=== PATIENT | female | born 1995 | race Caucasian/White ===

== ENCOUNTER 2020-08-19 11:44 | Outpatient (RCR) | payer OTHER, SELFPAY ==
--- NOTE | 2020-08-28 11:43 | MHC.PT.DC ---
[facility] [place] Office [place] [facility] [place] [facility] [address] Rosa Fisher [address] [facility] [phone] F: [phone] F: [phone] F: [phone] F: [phone] Physical Therapy Discharge Report Diagnosis: low back pain Date of Surgery: N/A Date of Evaluation: 08/07/20 Date of Discharge: 08/28/20 Treatments to Date: 2 Cancellations to Date: 0 No Shows to Date: 4 Discharge Status: Visit Non-compliance Discharge Summary: The patient has missing four scheduled appointments without calling to cancel. Per [facility], which the patient was aware of and signed, she is being discharged for non-compliance. She has a home exercise program of low back stretching and core stabilization exercises. She is discharged from this physical therapy plan of care. Electronically signed by: Elis Shaw PT, DPT Please sign and return to therapist. Thank you for your referral.
== END 2020-08-28 11:44 | disposition other institution (70) ==
LOC: HO.PT 11:44
PROVIDERS: PCP Internal Medicine; Visit Provider Internal Medicine
DX: M54.5 Low back pain (principal)
CPT/HCPCS: 97110

== ENCOUNTER 2020-09-23 10:43 | Outpatient (REF) | payer OTHER, SELFPAY ==
[2020-09-23 12:18] LABS: MANUAL DIFF FLAG NO
[2020-09-23 12:40] LABS: Basophils Percent Auto 0.4 % (0-2); Eosinophils Absolute Auto 0.2 X10*3/uL (0.0-0.4); Eosinophils Percent Auto 3.2 % (0-4); Hematocrit 43.3 % (37-47); Hemoglobin 13.7 g/dl (12.0-16.0); Imm Gran Abs Auto 0.04 X10*3/uL (0.00-0.03); Imm Gran Pct Auto 0.5 % (0.0-0.4); Lymphocytes Absolute Auto 1.9 X10*3/uL (1.2-4.9); Mean Corpuscular HGB Conc 31.6 g/dl (31.0-35.0); Mean Corpuscular Hemoglobin 26.4 pg (27.0-33.0); Mean Corpuscular Volume 83.4 fL (80-98); Mean Platelet Volume 9.3 fL (9.4-12.3); Monocytes Absolute Auto 0.6 X10*3/uL (0.1-1.2); Monocytes Percent Auto 7.5 % (2-11); Neutrophils Absolute Auto 4.8 X10*3/uL (2.0-8.3); Neutrophils Percent Auto 63.4 % (45-73); Platelet Count 384 X10*3/uL (160-400); Red Blood Count 5.19 X10*6/uL (4.20-5.50); Red Cell Distribution Width 13.2 % (11.0-16.0); White Blood Count 7.5 X10*3/uL (4.8-10.8)
[2020-09-23 12:58] LABS: Alanine Aminotransferase 29 U/L (0-31); Albumin Level 4.1 g/dL (3.5-5.0); Alkaline Phosphatase 79 U/L (39-117); Anion Gap 11 (12-20); Aspartate Amino Transferase 19 U/L (5-31); Bilirubin Total 0.4 mg/dL (0.0-1.0); Blood Urea Nitrogen 15 mg/dL (9-16); Calcium 8.7 mg/dL (8.4-10.2); Carbon Dioxide 27 mmol/L (22-29); Chloride 104 mmol/L (96-108); Cholesterol 161 mg/dL; Estimated Glomerular Filt Rate > 60; Glucose Fasting 97 mg/dL (60-99); HDL Cholesterol 49 mg/dL; LDL Cholesterol Calculated 103 mg/dl; Potassium 4.9 mmol/l (3.3-5.1); Sodium 137 mmol/L (135-145); Total Protein 7.4 g/dL (6.5-8.0); Triglycerides 46 mg/dL
== END 2020-09-23 10:44 | disposition home or self-care (01) ==
LOC: HO.LAB 10:43
PROVIDERS: PCP Internal Medicine; Visit Provider Internal Medicine
DX: E66.9 Obesity, unspecified (principal); E11.9 Type 2 diabetes mellitus without complications
CPT/HCPCS: 36415; 80053; 80061; 85025

== ENCOUNTER 2021-06-02 13:24 | Outpatient (REF) | payer OTHER, SELFPAY ==
[2021-06-02 16:05] LABS: Syphilis Screen Nonreactive (Nonreactive)
[2021-06-03 02:40] LABS: CT PCR NOT DETECTED (Not Detect.); NG PCR NOT DETECTED (Not Detect.)
[2021-06-03 13:02] LABS: BV Int Neg Control Negative (Negative); BV Int Pos Control Positive (Positive)
[2021-06-04 08:24] LABS: HBsAGNum1 0.19 S/CO (0.00-0.99); HIV AB/AG Nonreactive (Nonreactive); HIV Num 1 0.15 S/CO (0.00-0.99); Hepatitis B Surface Antigen Negative (Negative); ~HepC Num1 0.13 S/CO (0.00-0.79); ~Hepatitis C Antibody Nonreactive (Nonreactive)
== END 2021-06-02 13:25 | disposition home or self-care (01) ==
LOC: HO.LAB 13:24
PROVIDERS: PCP Internal Medicine; Visit Provider Advanced Practice Midwife
DX: Z01.411 Encounter for gynecological examination (general) (routine) with abnormal findings (principal); Z11.3 Encounter for screening for infections with a predominantly sexual mode of transmission; Z11.4 Encounter for screening for human immunodeficiency virus [HIV]; Z01.84 Encounter for antibody response examination; E66.01 Morbid (severe) obesity due to excess calories; Z20.2 Contact with and (suspected) exposure to infections with a predominantly sexual mode of transmission
CPT/HCPCS: 36415; 86780; 86803; 87340; 87389; 87480; 87491; 87510; 87591; 87660

== ENCOUNTER → 2021-10-21 15:41 | Outpatient (BNVA) | payer OTHER, SELFPAY | PROVIDERS: PCP Internal Medicine; Visit Provider Advanced Practice Midwife ==

== ENCOUNTER 2022-03-22 14:19 | Outpatient (REF) | payer OTHER, SELFPAY ==
[2022-03-22 18:16] LABS: CT PCR NOT DETECTED (Not Detect.); NG PCR NOT DETECTED (Not Detect.)
[2022-03-23 04:18] LABS: HBsAGNum1 0.58 S/CO (0.00-0.99); HIV AB/AG Nonreactive (Nonreactive); HIV Num 1 0.07 S/CO (0.00-0.99); Hepatitis B Surface Antigen Negative (Negative); ~HepC Num1 0.13 S/CO (0.00-0.79); ~Hepatitis C Antibody Nonreactive (Nonreactive)
[2022-03-23 05:41] LABS: Syphilis Screen Nonreactive (Nonreactive)
[2022-03-23 10:57] LABS: BV Int Neg Control Negative (Negative); BV Int Pos Control Positive (Positive)
== END 2022-03-22 14:20 | disposition home or self-care (01) ==
LOC: HO.LAB 14:19
PROVIDERS: PCP Internal Medicine; Visit Provider Obstetrics & Gynecology
DX: Z11.3 Encounter for screening for infections with a predominantly sexual mode of transmission (principal); Z11.4 Encounter for screening for human immunodeficiency virus [HIV]; N91.2 Amenorrhea, unspecified; Z20.2 Contact with and (suspected) exposure to infections with a predominantly sexual mode of transmission
CPT/HCPCS: 36415; 81025; 86780; 86803; 87340; 87389; 87480; 87491; 87510; 87591; 87660; 99212

== ENCOUNTER 2022-06-06 12:04 | Outpatient (REF) | payer OTHER, SELFPAY ==
[2022-06-07 09:10] LABS: BV Int Neg Control Negative (Negative); BV Int Pos Control Positive (Positive)
== END 2022-06-06 12:05 | disposition home or self-care (01) ==
LOC: HO.LAB 12:04
PROVIDERS: Visit Provider Advanced Practice Midwife
DX: Z01.419 Encounter for gynecological examination (general) (routine) without abnormal findings (principal)
CPT/HCPCS: 87480; 87510; 87660

== ENCOUNTER 2023-04-12 15:30 | Outpatient (REF) | payer OTHER, SELFPAY ==
[2023-04-12 15:42] LABS: MANUAL DIFF FLAG NO
[2023-04-12 16:51] LABS: Basophils Percent Auto 0.3 % (0-2); Eosinophils Absolute Auto 0.2 X10*3/uL (0.0-0.4); Eosinophils Percent Auto 1.6 % (0-4); Hematocrit 43.4 % (37.0-47.0); Hemoglobin 14.1 g/dl (12.0-16.0); Imm Gran Abs Auto 0.08 X10*3/uL (0.00-0.03); Imm Gran Pct Auto 0.6 % (0.0-0.4); Lymphocytes Absolute Auto 2.5 X10*3/uL (1.2-4.9); Lymphocytes Percent Auto 17.8 % (20-40); Mean Corpuscular HGB Conc 32.5 g/dl (31.0-35.0); Mean Corpuscular Volume 83.1 fL (80.0-98.0); Mean Platelet Volume 9.2 fL (9.4-12.3); Monocytes Absolute Auto 1.1 X10*3/uL (0.1-1.2); Monocytes Percent Auto 7.6 % (2-11); Neutrophils Absolute Auto 10.3 x10*3/uL (2.0-8.3); Neutrophils Percent Auto 72.1 % (45-73); Platelet Count 416 X10*3/uL (160-400); Red Blood Count 5.22 X10*6/uL (4.20-5.50); Red Cell Distribution Width 13.2 % (11.0-16.0); White Blood Count 14.3 X10*3/uL (4.8-10.8)
[2023-04-12 17:16] LABS: Alanine Aminotransferase 32 U/L (0-31); Albumin Level 4.3 g/dL (3.5-5.0); Alkaline Phosphatase 86 U/L (39-117); Anion Gap 11 (12-20); Aspartate Amino Transferase 22 U/L (5-31); Bilirubin Total 0.4 mg/dL (0.0-1.0); Blood Urea Nitrogen 10 mg/dL (9-16); Calcium 9.8 mg/dL (8.4-10.2); Carbon Dioxide 30 mmol/L (22-29); Chloride 102 mmol/L (96-108); Estimated Glomerular Filt Rate > 60; Glucose Random 82 mg/dL (60-115); Potassium 4.4 mmol/L (3.3-5.1); Sodium 139 mmol/L (135-145); Total Protein 7.8 g/dL (6.5-8.0)
== END 2023-04-12 15:31 | disposition home or self-care (01) ==
LOC: HO.LAB 15:30
PROVIDERS: PCP Internal Medicine; Visit Provider Nurse Practitioner Family
DX: R51.9 Headache, unspecified (principal)
CPT/HCPCS: 36415; 80053; 85025

== ENCOUNTER 2023-04-25 07:47 | Outpatient (REF) | payer OTHER, SELFPAY ==
--- NOTE | ~2023-04-25 | CT_ITS ---
EXAMINATION: CT HEAD WITHOUT CONTRAST CLINICAL INFORMATION: Headaches. COMPARISON: None. TECHNIQUE: Contiguous axial imaging was performed from the skullbase to vertex without intravenous administration of contrast. This CT examination was performed using dose optimization techniques as appropriate, variously including the following: *Automated exposure control *Adjustment of mA and/or kV according to patient size (this includes techniques or standardized protocols for targeted exams where dose is matched to indication/reason for exam; i.e. extremities or head) *Use of iterative reconstruction technique DLP: 893 mGy-cm. FINDINGS: There is no evidence of acute intracranial hemorrhage or territorial infarction. No abnormal mass effect or midline shift is seen. Adamson to white matter differentiation is well preserved. No extra-axial fluid collections are identified. The ventricles are normal in size. There is no abnormal attenuation within the brain parenchyma. The osseous structures and soft tissues are normal. The mastoid air cells and visualized portions of the paranasal sinuses are well aerated. CT/CT head/brain wo IV con IMPRESSION: No acute intracranial pathology.
== END 2023-04-25 07:48 | disposition home or self-care (01) ==
LOC: HO.CT 07:47
PROVIDERS: PCP Internal Medicine; Visit Provider Nurse Practitioner Family
DX: R51.9 Headache, unspecified (principal)
CPT/HCPCS: 70450

== ENCOUNTER 2023-05-08 09:31 | Outpatient (REF) | payer OTHER, SELFPAY ==
[2023-05-08 09:47] LABS: MANUAL DIFF FLAG NO
[2023-05-08 09:59] LABS: Basophils Percent Auto 0.6 % (0-2); Eosinophils Absolute Auto 0.2 X10*3/uL (0.0-0.4); Eosinophils Percent Auto 2.6 % (0-4); Hematocrit 41.2 % (37.0-47.0); Hemoglobin 13.4 g/dl (12.0-16.0); Imm Gran Abs Auto 0.03 X10*3/uL (0.00-0.03); Imm Gran Pct Auto 0.4 % (0.0-0.4); Lymphocytes Absolute Auto 1.8 X10*3/uL (1.2-4.9); Lymphocytes Percent Auto 25.3 % (20-40); Mean Corpuscular HGB Conc 32.5 g/dl (31.0-35.0); Mean Corpuscular Hemoglobin 27.1 pg (27.0-33.0); Mean Corpuscular Volume 83.2 fL (80.0-98.0); Mean Platelet Volume 8.6 fL (9.4-12.3); Monocytes Absolute Auto 0.6 X10*3/uL (0.1-1.2); Monocytes Percent Auto 9.1 % (2-11); Neutrophils Absolute Auto 4.4 x10*3/uL (2.0-8.3); Platelet Count 384 X10*3/uL (160-400); Red Blood Count 4.95 X10*6/uL (4.20-5.50); Red Cell Distribution Width 13.3 % (11.0-16.0)
[2023-05-08 10:46] LABS: TSH reflex Free T4 1.33 uIU/mL (0.32-4.0)
== END 2023-05-08 09:32 | disposition home or self-care (01) ==
LOC: HO.LAB 09:31
PROVIDERS: PCP Internal Medicine; Visit Provider Nurse Practitioner Family
DX: R51.9 Headache, unspecified (principal); D72.829 Elevated white blood cell count, unspecified
CPT/HCPCS: 36415; 84443; 85025

== ENCOUNTER 2023-06-12 11:37 | Outpatient (REF) | payer OTHER, SELFPAY ==
[2023-06-13 05:41] LABS: CT PCR NOT DETECTED (Not Detect.); NG PCR NOT DETECTED (Not Detect.)
[2023-06-13 14:16] LABS: BV Int Neg Control Negative (Negative); BV Int Pos Control Positive (Positive)
== END 2023-06-12 11:38 | disposition home or self-care (01) ==
LOC: HO.LNP 11:37
PROVIDERS: PCP Internal Medicine; Visit Provider Advanced Practice Midwife
DX: Z01.419 Encounter for gynecological examination (general) (routine) without abnormal findings (principal); N92.1 Excessive and frequent menstruation with irregular cycle; Z20.2 Contact with and (suspected) exposure to infections with a predominantly sexual mode of transmission; E66.01 Morbid (severe) obesity due to excess calories; R51.9 Headache, unspecified
CPT/HCPCS: 0353U; 87480; 87510; 87660; 88142

== ENCOUNTER 2023-06-12 11:37 | Outpatient (AMB) | payer OTHER, SELFPAY ==
--- NOTE | 2023-06-12 11:41 | A.OFFVIS_ITS ---
Intake Vital Signs 06/12/23 11:42 Height 5 ft 2 in Weight 290 lb 4 oz BMI 53.1 BP 142/84 H Intake Visit Reasons: Annual Intake Note: annual Clinical Program Coordinator Required: No Information Interpreted: non-clinical & clinical Beer Runner: Beer Runner Present (Karleeyn) Allergies coconut [COCONUT] Allergy (Unknown, Verified 06/12/23 11:46) HIVES shellfish derived [SHELLFISH DERIVED] Allergy (Unknown, Verified 06/12/23 11:46) UNKNOWN Medication List - Last Reconciled 06/12/23 by Maris Liu CNM No Known Home Meds Is last menstrual period known: No (irregular) Post menopausal: No HPI Annual HPI Details Patient is here for cardiovascular disease specialist exam. She is sexually active but says she uses condoms and isn't trying to get anymore. She cites very irregular periods and when she gets them they are very very heavy she gets them at this current time about every other month and her last 1 was about 2 months ago and was quite heavy. She would like to do something about controlling the periods but does not know what. She isn't necessarily interested in any other method of control but she was told once that she can not really take control pills because she gets migraines with visual changes she recently had a CT scan to check out her migraines but says she got a call that everything was okay. She does not really have primary care follow-up for another 6 months she says. She also says she had some blood work recently but the only thing that she was told was abnormal was her white count was high but then it was okay. She also was in the hospital once for some abdominal pain but says that they told her it could have been that she was ovulating or something else but they did not really know what it was. She was recently talking to her therapist about maybe exploring the weight loss program because she has not been interested in that till now but she still thinking about it she has friends that got surgery at [facility] and so she is thinking about her options. Patient does not notice any increased facial hair or anything. 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 She has been trying to do more exercise by going for walks with her dog in the morning and evening. [facility] Medical History Obesity Obesity Surgical History History of back surgery No pertinent past surgical history Family History Father No problems noted. Mother No problems noted. Social History Housing: Apartment Alcohol intake: current Alcohol intake frequency: holidays/special occasions only Patient Tobacco Use Status: Never used Tobacco e-Cigarette/Vaping Use: Never Used Second Hand Smoke Exposure: No service: No Current occupational status: employed Gender identity: Female Cognitive needs: No Hearing needs: No Vision needs: No Female Reproductive History Menstrual Age of Menarche: 18 Duration of menses: 6-7 days control method: none Total pregnancies: 0 Date of last pap smear: 06/02/20 (negative) History of abnormal pap smear: No Physical Exam Vital Signs: Last Vital Signs BP 142/84 H 06/12/23 11:42 BMI result Body Mass Index 53.1 Const Other: Increased body hair noted but patient denies increased facial hair. General: healthy appearing, comfortable, no acute distress, well developed and alert Nutritional Appearance: average body habitus and obese Orientation/consciousness: patient oriented x3 Limitations: no limitations HEENT Head: Yes normocephalic Neck Neck: Yes normal visual inspection Thyroid: Thyroid normal Chest Chest palpation & inspection: normal inspection of the chest Breast/axilla inspection: normal inspection of the breasts and normal inspection of the axillae Breast/axilla palpation: normal palpation of the breasts and normal palpation of the axillae Resp Effort & Inspection: normal respiratory effort GI Inspection: Yes normal to inspection, No Abdominal wall edema and No distended Palpation (GI): Soft to palpation and nontender Other: Challenging speculum exam secondary to adipose and vaginal clinching cervix pink smooth healthy nulliparous. Nontender with bimanual uterus nontender but not really palpable adnexa nontender not really palpable tight vaginal tone noted. Scant discharge equals clear General: Yes bladder normal to palpation External Female Exam: normal external appearance and normal appearance of the urethra Speculum Exam - Vagina: normal appearance of the vagina, normal palpation and normal vaginal discharge Speculum Exam - Cervix: normal appearance of the cervix, normal palpation and nontender Bimanual exam- vagina & uterus: normal bimanual exam, normal palpation, uterine size normal, bladder normal to palpation, consistency normal, normal palpation, uterine mobility normal, uterine shape normal, No Cervical tenderness present, non-tender and no cervical motion tenderness Bimanual Exam- Adnexa, other: normal adnexae, no masses, normal and No adnexal tenderness Neuro General: patient oriented x3 Assessment & Plan Assessment & Plan (1) Amenorrhea: Code(s): N91.2 - Amenorrhea, unspecified (2) Potential exposure to STD: Code(s): Z20.2 - Contact with and (suspected) exposure to infections with a predominantly sexual mode of transmission (3) Obesity, morbid, BMI 50 or higher: Code(s): E66.01 - Morbid (severe) obesity due to excess calories (4) Women's annual routine gynecological examination: Code(s): Z01.419 - Encounter for gynecological examination (general) (routine) without abnormal findings (5) Headache: Code(s): R51.9 - Headache, unspecified Plan Patient was not particularly interested in STI testing but I did recommend testing for gonorrhea chlamydia as well as the trichomoniasis and other testing that goes with with it as they recommended in her age group for someone sexually active. She says she uses condoms and I encouraged her to continue with this. Discussed at length the interplay between increased body mass increased hormonal milieu and the periods of time when she does not fully ovulate and therefore does not get a period and then at some future time gets a very heavy heavy.. That is very difficult for her to manage and she would like to prevent that even when she gets a period every other month it is extremely heavy and difficult to manage for her. She remembers being told that because of her migraine headaches with visual changes she should not take control pills, and I shared that that is correct. Depo-Provera or Nexplanon have the negative side effect of increased weight gain so would not be beneficial for her. Discussed the possible use of a Kyleena or Mirena IUD to help at least control the flow of her menses as well as be contraception while she refocus is her efforts on weight loss, however placement of it would be challenging given the adipose tissue and relaxing with exam though perhaps she would be able to relax more at a future exam. I gave her a brochure about it to think about it and I am also offering her a prescription for Provera to take either once a month her every other month to help prevent the lining of the uterus from building up so she is not plagued with very challenging very heavy menses. Strict instructions given to only take it when she is absolutely certain that she has no risk of because she has been using protection 100% of the time and she confirms this with a negative test before starting the 10 day course of Provera. I gave her 3 refills on the Provera I am also ordering a pelvic ultrasound and discussed the possible finding was of PCOS type findings but we will review this at a 2 to three-month follow-up visit and also she is going to keep track of her menses . I also offered to place a weight management referral for her and I did give her the brochure for that as well and did discuss body mass and the other long- term effects of being this size and the risks for diabetes as well as other health concerns. Additionally she may check out other options. It was clear that discussing weight and body issues is very difficult, and she shared that deciding things is difficult as well. We will see her in 3 months to see how she is doing and continue discussion if not before. Orders: Orders US pelvic and transvaginal Today E66.01 - Morbid (severe) obesity due to excess calories, N91.2 - Amenorrhea, unspecified, R51.9 - Headache, unspecified, Z01.419 - Encounter for gynecological examination (general) (routine) without abnormal findings, Z20.2 - Contact with and (suspected) exposure to infections with a predominantly sexual mode of transmission Referrals Medical Weight Management Referral E66.01 - Morbid (severe) obesity due to excess calories, N91.2 - Amenorrhea, unspecified, R51.9 - Headache, unspecified, Z01.419 - Encounter for gynecological examination (general) (routine) without abnormal findings Medications: New medroxyprogesterone (Provera) Take for 10 days they 1 through 10 of the month, if absolutely no unprotected intercourse for 2 weeks prior, and negative test 10 mg PO DAILY 10 tabs 3RF Coding Level of Care Code Est Pt Prev Care 18-39y(23792) Diagnoses Amenorrhea N91.2 Potential exposure to STD Z20.2 Obesity, morbid, BMI 50 or higher E66.01 Women's annual routine gynecological examination Z01.419 Headache R51.9
[2023-06-12 11:42] VITALS: BP 142/84; BMI 53.1
== END 2023-06-12 12:47 | disposition home or self-care (01) ==
LOC: HO.HWS 11:37
PROVIDERS: PCP Internal Medicine; Visit Provider Advanced Practice Midwife
DX: Z01.419 Encounter for gynecological examination (general) (routine) without abnormal findings (principal); N91.2 Amenorrhea, unspecified; Z20.2 Contact with and (suspected) exposure to infections with a predominantly sexual mode of transmission; E66.01 Morbid (severe) obesity due to excess calories; R51.9 Headache, unspecified
CPT/HCPCS: 99395

== ENCOUNTER 2023-06-16 15:25 | Outpatient (REF) | payer OTHER, SELFPAY ==
--- NOTE | ~2023-06-16 | US_ITS ---
EXAMINATION: US PELVIS CLINICAL INFORMATION: Amenorrhea COMPARISON: None available. TECHNIQUE: Ultrasound of the pelvis is performed using both transabdominal and transvaginal transducers along with Doppler. Transvaginal imaging is performed due to inadequate visualization transabdominally. FINDINGS: Uterus: The uterus is anteverted and measures 7.3 x 3.4 x 4.4 cm. Small nabothian cysts are seen. The double wall endometrial thickness is 11 mm. The uterus is smooth in contour and has normal myometrial echogenicity. No visible fibroid. Adnexa: Both ovaries are visualized. There is normal color flow to the adnexa. There is no ovarian torsion. There is no pelvic ascites or fluid collection. Right ovary measures 4.1 x 1.9 x 2.2 cm. Volume 9.3 mL. Left ovary measures 3.9 x 2.2 x 2.7 cm. Volume 12.2 mL. Multiple incidental follicles are seen in the left ovary. US/US pelvic and transvaginal IMPRESSION: Normal uterus and ovarian size. Multiple follicles are present in the left ovary which can be seen in polycystic ovarian syndrome although there is no associated ovarian enlargement in this patient.
== END 2023-06-16 15:26 | disposition home or self-care (01) ==
LOC: HO.HMGCX 15:25
PROVIDERS: PCP Internal Medicine; Visit Provider Advanced Practice Midwife
DX: N91.2 Amenorrhea, unspecified (principal); Z20.2 Contact with and (suspected) exposure to infections with a predominantly sexual mode of transmission; E66.01 Morbid (severe) obesity due to excess calories
CPT/HCPCS: 76830; 76856

== ENCOUNTER → 2023-07-24 09:57 | Outpatient (BNVA) | payer OTHER, SELFPAY | PROVIDERS: PCP Internal Medicine; Visit Provider Physician Assistant Surgical ==

== ENCOUNTER 2023-08-11 14:24 | Outpatient (AMB) | payer OTHER, SELFPAY ==
--- NOTE | 2023-08-11 14:26 | MHC.OFFVISWM ---
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 woman who is here to start SWL program with SWL classes. Her goal is to lose weight and improve her health.? She reports first being concerned about her weight in grade school.? She has tried multiple methods of weight loss including portion restriction & exercisie without permanent results. She lives with with her boyfriend. She works 5 days per week at [employer] She reports a prior sleep study done many years ago due to non restorative sleep and was told that she did not have sleep apnea. Her boyfriend notes that she snores but she does not have apneic events, to the best of her knowledge. She does have ongoing non restorative sleep Intolerance of dairy/lactose:? N Gluten Sensitivity:? N? Celiac? N PMH: L4/5 discectomy PSH: L4/5 discectomy, denies intra-abdominal surgery She wakes at:??0500? bed at: 1030-1100pm Breakfast: Skips or eats later in the morning Lunch: Eats at noon, a salad or wrap or grown lumbar is or been in a Dinner: 6-7 p.m., includes a protein, rice/pasta and vegetable After dinner: Crackers, salami and cheese, possible smoothie Other snacks: Crackers, salami and cheese, possible smoothie Liquids: Recently quit drinking sugared soda at work 3-4 months ago, typically drinks water, Indian rarely juice Alcohol intake: ??rare? nicotine: ? marijuana:??denied? drugs:?denied? caffeine: 1 6 oz cup at work Exercise: none FH patient reports that her father has obesity, type 2 diabetes and she believes kidney issues related to his diabetes Last mammogram: N/A Last pap smear: May 2023 control method: Provera but not being used currently, patient reports is prescribed when she is amenorrhea Colonoscopy: Previously done in 3rd grade due to unclear reasons, patient denies inflammatory bowel disease, lower GI symptoms or family history significant CHRIS: 3 ESS: 6 GERD: 18 QOL: 79 The patient is advised that vitamin or protein supplement samples maybe provided by Ladonna Du RD to facilitate care options. [facility] Medical History Obesity Obesity Surgical History History of back surgery Family History Father No problems noted. Mother No problems noted. Social History Housing: Apartment Alcohol intake: current Alcohol intake frequency: holidays/special occasions only Patient Tobacco Use Status: Never used Tobacco e-Cigarette/Vaping Use: Never Used Second Hand Smoke Exposure: No service: No Current occupational status: employed Gender identity: Female Cognitive needs: No Hearing needs: No Vision needs: No Female Reproductive History Menstrual Age of Menarche: 18 Review of Systems Const All systems reviewed & are unremarkable except as noted in HPI and below Reports as per HPI Physical Exam The patient is non-toxic & in good spirits NC/AT, PERRLA, EOMI Mood, affect & judgment all appear appropriate Sclera anicteric conjunctiva pink and moist Oropharynx is clear with no aphthous ulcers, Mallampati class 4, mucous membranes moist Neck is supple with no masses, adenopathy or bruits Thyroid is nontender and free of dominant masses Heart is regular, normal S1-S2 no rubs or murmurs Lungs are clear and equal anteriorly with no audible wheezing, rubs or dullness to percussion Abdomen is obese with no demonstrable hernias. No HSM, rebound, rigidity, guarding, masses or bruits are present. Rectal exam is deferred Skin has good turgor and is free of rashes Extremities free of cyanosis clubbing edema Assessment & Plan Assessment & Plan (1) Obesity, morbid, BMI 50 or higher: Code(s): E66.01 - Morbid (severe) obesity due to excess calories (2) Non-restorative sleep: Code(s): G47.8 - Other sleep disorders (3) Snoring: Code(s): R06.83 - Snoring Plan Options regarding medical weight loss, and surgical options including laparoscopic sleeve gastrectomy and laparoscopic gastric bypass were discussed. Normal anatomy and physiology were reviewed with the patient and the importance of a high-protein/high-fiber and low-carbohydrate/low-fat diet and increased activity/exercise to augment surgical weight loss was reviewed and apparently understood. The patient seemed understand her options and would like to proceed with a workup for laparoscopic sleeve gastrectomy. The inherent risks to surgery including bleeding and the possible need for reoperation or blood transfusion, weight regain if maladaptive eating and sedentary behavior return, GERD, risk of dehydration with DVT and pulmonary embolism that could be fatal was also reviewed and apparently understood. Patient seemed understand and would like to proceed. Given her non restorative sleep will order a home sleep study. See orders. Handouts on meal plan from [employer] alison and Education handouts regarding diet was provided to the patient. I will see her back at the end of August. Preop Bariatric Plan 1.?? Nutritional counseling:?Be sure to careful read the number of scoops per shake if you are using powdered mix.? Premier premixed or powdered shakes & the protein bar of your choice.? Remember to be sure the bar has twice as much protein as sugar/carbs! Start with? Premier Protein shakes First shake at (2 scoops in 20 oz unsweetened almond milk) 6-8am Second shake, (2 scoops in 20 oz unsweetened almond milk) at Noon-2pm 1 protein bar ?bars at 3-4pm. Dinner at 7pm (10 forks of protein and 10 forks of salad/vegetables). Meal to include lean meat (beef, fish, pork, turkey, chicken), cooked vegetables or a salad with olive oil and/or fruits (berries, pears, apples, kiwi). After dinner protein bar. Goal protein: 120g/day with bars & shakes; the option to adjust re: work reviewed. Avoid breads, potatoes, starches, rice, pasta, desserts.? The sooner you decrease carbohydrates & excess fats, the sooner you will reach your goal. 2.?? You must closely monitor your blood glucose/pressure at least twice a day. ?? After dinner snacking should be protein bar if needed. Try to drink 64 oz of water daily and avoid soda and juices. ?2. Each shake would be drunk slowly in a period of 2 hours. ?3. Cut each bar in 4 pieces and eat each piece in 30 min to make each bar last 2 hours. ?4. I emphasized the importance of measuring accurately the food portion and measure it carefully when serving the food on the plate ?5. The meal portions include 10 full-size forks of meat and 10 full-size forks of salad. You should always eat the meat portion but you can skip the forks of salad/vegetables and replace with a fruit if you like. The less you do it the better weight loss will be. ?6. One full-size fork is what can be scooped on the fork without falling aside and not what can be bit with the fork. Use regular forks like those you find in a typical restaurant. ?7.? Please send me weight measurements as soon as possible and then once a week. Always include your diet and exercise plan. Alternatively come weekly at the office for weight checks and send me the measurements. ?8. Exercise counseling:? Begin by watching a stretching for beginner?s video.? Start slowly and begin to stretch your muscles.? You should do this before and after each exercise session to prevent injury.? Please use the exercise equipment at your building. Start elliptical with a resistance of 2. Increase resistance by 1 every 3 min to your most comfortable resistance with a max resistance of 8.? Reduce the resistance by 1 every 3 minutes back down to 2 and repeat cycles for 300 calories. Alternatively, start treadmill with a speed of 3.0 and incline of 0, increasing incline by 1 every 3 minutes to the highest comfortable level (max 6 for now) then decrease in the same fashion.? Repeat process to a goal of 300 calories.? Goal of 2000 calories burned or more weekly.? You may also consider use of the stationary bike.? The easiest would be to choose the fat-burn or interval training program on the machine and do this until you reach the 300 calorie goal.? Alternatively, you can manually adjust the resistance in a similar fashion as mentioned above, (resistance of 2-8 with a goal speed of 12 mph).?Tracking calories is essential. 9. Alternatively, start walking outside daily, tracking calories with a goal of 300 calories per day, daily. If [id number] is needed, you can start there, but the goal is DAILY. You can download the alison?Festicket?which can track your time, distance and calories while walking outside.? You press start in the alison when you start and then stop when you are finished. ? 10.? It is important to avoid and for at least 18 months postoperatively and it has been discussed at the information session 11. Please get labs, EKG and chest X-Ray within 1 week. 12. Discussed and answered all questions regarding?obtained consent to participate in the [facility]?Registry. 13. Please follow the diet plan exactly, without any change.? If you do not like something about the plan or you feel hungry, you need to communicate with me so I can help you revise the plan.? You should not change the plan yourself. 14. Goal is to lose 1.5-2.0 lbs/week 15. Goal is to lose 10% of your weight before surgery, which is about 30 lbs. Ultimate weight goal: 319 lbs before surgery.? Remember that you may need to lose more weight to qualify for surgery if your abdominal ultrasound shows your liver or spleen are enlarged or if your upper GI shows a hiatal hernia. IF YOU EXPERIENCE PAIN, SEVERE SHORTNESS OF BREATH, DIZZINESS OR LIGHTHEADEDNESS, OR SIGNIFICANT CONSTIPATION OR DIARRHEA, (DIARRRHEA CAN OCCUR FROM SOME ARTIFICIAL SWEETENERS) PLEASE NOTIFY THE OFFICE! If you have diabetes, you will need to follow your blood sugars at least twice a day (morning & evening, or as needed if you are shaky/sweaty or feel hypoglycemic).? Please discuss with Dr. Tejeda.? Text Dr. Tejeda at [phone] If you have hypertension/high blood pressure, you will need to monitor your blood pressure regarding adjusting medications.? Please discuss with Dr. Tejeda.? We encourage patients to track calories burned while exercising as this is a more proven method verses ?steps? or ?miles walked? apps.? Patients who have dedicated exercise time at regular intervals throughout the week have greater weight loss then patients who hope that being active at work or through their day will result in weight loss.? Your body has adapted to your current life & you need to add regular exercise, just like you added a healthier diet for your health goals. Resistance training (weight lifting) is helpful to reach your goal, strengthen your bones or if your weight loss has stalled (reached a plateau) by both burning calories & adding muscle, which increases your metabolism.? Chest, back & thigh muscles can be exercised at home or at a gym.? Please discuss your goals with Dr. Tejeda or a qualified maintenance trainer at your local gym. YouTube options: ?Sit to Be Fit, Daily Burn, Radha, Walk away the pounds, [employer] Websites: Sit and Be Fit? https://www.sitandbefit.org/ Go For Life https://me8phgb.edie.nih.gov/ Orders: Orders IRON PROFILE Today E66.01 - Morbid (severe) obesity due to excess calories, G47.8 - Other sleep disorders, R06.83 - Snoring Complete Blood Count Auto Diff Today E66.01 - Morbid (severe) obesity due to excess calories, G47.8 - Other sleep disorders, R06.83 - Snoring Vitamin B12 and Folate Today E66.01 - Morbid (severe) obesity due to excess calories, G47.8 - Other sleep disorders, R06.83 - Snoring Zinc Today E66.01 - Morbid (severe) obesity due to excess calories, G47.8 - Other sleep disorders, R06.83 - Snoring Comprehensive Met. Panel Today E66.01 - Morbid (severe) obesity due to excess calories, G47.8 - Other sleep disorders, R06.83 - Snoring Vitamin A Today E66.01 - Morbid (severe) obesity due to excess calories, G47.8 - Other sleep disorders, R06.83 - Snoring PTHI Today E66.01 - Morbid (severe) obesity due to excess calories, G47.8 - Other sleep disorders, R06.83 - Snoring H Pylori Breath Test Today E66.01 - Morbid (severe) obesity due to excess calories, G47.8 - Other sleep disorders, R06.83 - Snoring Vitamin D 25-OH Total Today E66.01 - Morbid (severe) obesity due to excess calories, G47.8 - Other sleep disorders, R06.83 - Snoring ECG 12 lead EKG Today E66.01 - Morbid (severe) obesity due to excess calories, G47.8 - Other sleep disorders, R06.83 - Snoring RT home sleep study Today E66.01 - Morbid (severe) obesity due to excess calories, G47.8 - Other sleep disorders, R06.83 - Snoring Insulin Today E66.01 - Morbid (severe) obesity due to excess calories, G47.8 - Other sleep disorders, R06.83 - Snoring Lipid Panel Today E66.01 - Morbid (severe) obesity due to excess calories, G47.8 - Other sleep disorders, R06.83 - Snoring Vitamin B1 Today E66.01 - Morbid (severe) obesity due to excess calories, G47.8 - Other sleep disorders, R06.83 - Snoring C Reactive Protein Today E66.01 - Morbid (severe) obesity due to excess calories, G47.8 - Other sleep disorders, R06.83 - Snoring Ferritin Today E66.01 - Morbid (severe) obesity due to excess calories, G47.8 - Other sleep disorders, R06.83 - Snoring TSH reflex Free T4 Today E66.01 - Morbid (severe) obesity due to excess calories, G47.8 - Other sleep disorders, R06.83 - Snoring Hemoglobin A1c Today E66.01 - Morbid (severe) obesity due to excess calories, G47.8 - Other sleep disorders, R06.83 - Snoring US abdomen comp w elastography Today E66.01 - Morbid (severe) obesity due to excess calories, G47.8 - Other sleep disorders, R06.83 - Snoring XR chest 2V Today E66.01 - Morbid (severe) obesity due to excess calories, G47.8 - Other sleep disorders, R06.83 - Snoring FL upper GI w air Today E66.01 - Morbid (severe) obesity due to excess calories, G47.8 - Other sleep disorders, R06.83 - Snoring Referrals Behavioral Health Referral E66.01 - Morbid (severe) obesity due to excess calories, G47.8 - Other sleep disorders, R06.83 - Snoring Nutrition/Dietitian Referral E66.01 - Morbid (severe) obesity due to excess calories, G47.8 - Other sleep disorders, R06.83 - Snoring Coding Level of Care Code New Pt Level 4 (19135) Diagnoses Obesity, morbid, BMI 50 or higher E66.01 Non-restorative sleep G47.8 Snoring R06.83
[2023-08-11 14:37] VITALS: BP 154/82; PULSE 80; TEMP 36.7; O2SAT 98; BMI 52.9
== END 2023-08-11 16:09 | disposition home or self-care (01) ==
PROVIDERS: PCP Internal Medicine; Visit Provider Surgery
DX: E66.01 Morbid (severe) obesity due to excess calories (principal); Z68.43 Body mass index [BMI] 50.0-59.9, adult; G47.8 Other sleep disorders; R06.83 Snoring
CPT/HCPCS: 99204

== ENCOUNTER → 2023-08-11 14:24 | Outpatient (BNVA) | payer OTHER, SELFPAY | PROVIDERS: PCP Internal Medicine; Visit Provider Surgery ==

== ENCOUNTER 2023-08-11 15:44 | Outpatient (REF) | payer OTHER, SELFPAY ==
[2023-08-18 14:00] LABS: H Pylori Breath Test Negative (Negative)
== END 2023-08-11 15:45 | disposition home or self-care (01) ==
LOC: HO.LNP 15:44
PROVIDERS: Visit Provider Surgery
DX: E66.01 Morbid (severe) obesity due to excess calories (principal); G47.8 Other sleep disorders; R06.83 Snoring
CPT/HCPCS: 83013

== ENCOUNTER 2023-08-14 09:59 | Outpatient (REF) | payer OTHER, SELFPAY ==
--- NOTE | ~2023-08-14 | FL_ITS ---
EXAMINATION: XR FLUOROSCOPY UPPER GI WITH AIR CLINICAL INFORMATION: Obesity COMPARISON: None available. TECHNIQUE: Upper GI was performed using thin and thick barium and effervescent granules. FINDINGS: Esophageal motility is normal. No hernia or reflux is seen. The stomach and duodenum are normal. No fold thickening, mass, ulcer or stricture. FLUOROSCOPY TIME: 18 seconds. Total dose 13 mgy. 19 saved fluoroscopic images and one overhead image. DOSE AREA PRODUCT: 422 uGy-m2 (microgray-meter squared) FL/FL upper GI w air IMPRESSION: Unremarkable examination.
--- NOTE | ~2023-08-14 | XR_ITS ---
EXAMINATION: XR CHEST CLINICAL INFORMATION: Morbid obesity due to excess calories COMPARISON: None available. TECHNIQUE: 2 views of the chest were obtained. FINDINGS: There is no gross pneumothorax. Lung volumes are low. Heart size is normal. No pleural effusion. No focal consolidation to suggest pneumonia. XR/XR chest 2V IMPRESSION: No evidence of pneumonia.
== END 2023-08-14 10:00 | disposition home or self-care (01) ==
LOC: HO.XRAY 09:59
PROVIDERS: PCP Internal Medicine; Visit Provider Surgery
DX: E66.01 Morbid (severe) obesity due to excess calories (principal); G47.8 Other sleep disorders; R06.83 Snoring
CPT/HCPCS: 71046; 74246

== ENCOUNTER → 2023-08-14 10:02 | Outpatient (BNV) | payer OTHER, SELFPAY | PROVIDERS: PCP Internal Medicine; Visit Provider Radiology Diagnostic Radiology | DX: E66.01 Morbid (severe) obesity due to excess calories (principal) | CPT/HCPCS: 74246 ==

== ENCOUNTER 2023-08-17 08:44 | Outpatient (REF) | payer OTHER, SELFPAY | END 2023-08-17 08:45 | disposition home or self-care (01) | LOC: HO.LAB 08:44 | PROVIDERS: PCP Internal Medicine; Visit Provider Surgery | DX: E66.01 Morbid (severe) obesity due to excess calories (principal); G47.8 Other sleep disorders; R06.83 Snoring | CPT/HCPCS: 36415; 80053; 80061; 82306; 82607; 82728; 82746; 83036; 83525; 83540; 83970; 84425; 84443; 84590; 84630; 85025; 86140; 93005 ==

== ENCOUNTER 2023-09-08 11:29 | Outpatient (REF) | payer OTHER, SELFPAY ==
[2023-09-08 16:52] LABS: CT PCR NOT DETECTED (Not Detect.); NG PCR NOT DETECTED (Not Detect.)
[2023-09-09 11:23] LABS: BV Int Neg Control Negative (Negative); BV Int Pos Control Positive (Positive)
== END 2023-09-08 11:30 | disposition home or self-care (01) ==
LOC: HO.LNP 11:29
PROVIDERS: PCP Internal Medicine; Visit Provider Advanced Practice Midwife
DX: Z20.2 Contact with and (suspected) exposure to infections with a predominantly sexual mode of transmission (principal); N76.0 Acute vaginitis; B96.89 Other specified bacterial agents as the cause of diseases classified elsewhere; N91.2 Amenorrhea, unspecified
CPT/HCPCS: 0353U; 87480; 87510; 87660; 99212

== ENCOUNTER 2023-09-08 11:29 | Outpatient (AMB) | payer OTHER, SELFPAY ==
[2023-09-08 11:37] VITALS: BP 140/82; BMI 52.5
--- NOTE | 2023-09-08 11:37 | A.OFFVIS_ITS ---
Intake Vital Signs 09/08/23 11:37 Height 5 ft 2 in Weight 287 lb BMI 52.5 BP 140/82 H Intake Visit Reasons: Ultrasound follow up Intake Note: Patient thinks she either has BV or a yeast infection. Mixer Lever Operator Required: No Information Interpreted: non-clinical & clinical Unix Analyst: Unix Analyst Present (Brian) Allergies coconut [COCONUT] Allergy (Unknown, Verified 09/08/23 11:38) HIVES shellfish derived [SHELLFISH DERIVED] Allergy (Unknown, Verified 09/08/23 11:38) UNKNOWN Medication List - Last Reconciled 09/08/23 by Maris Liu CNM medroxyprogesterone (Provera) 10 mg PO DAILY Is last menstrual period known: Yes Last menstrual period: 08/17/23 Post menopausal: No HPI Ultrasound follow up HPI Details Is here today for ultrasound follow-up and also follow-up on the menorrhea and discussion of PCOS but also she thinks she might have BV she has an odorous discharge that bothers her and she feels like she has shower all the time and she also has some itching. She is currently using condoms for about the last month. She took the Provera a couple of times and she does have a couple more refills. She last used it to bring on a period in July and she did get a period after it but in August she got a period on her own and they both felt like normal periods that lasted about 5-6 days 1st day with spotting dates to and 3 very heavy and crampy and then lead die molder after that. She has started the weight management program and is working very hard on it she either does the treadmill at the gym or sometimes if she can not get to the to h im she does 1/2 hour video before work in the morning and her favorite are these very active dance videos and she works up more of a sweat with that than the treadmill. 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 Mother No problems noted. Social History Housing: Apartment Alcohol intake: current Alcohol intake frequency: holidays/special occasions only Patient Tobacco Use Status: Never used Tobacco e-Cigarette/Vaping Use: Never Used Second Hand Smoke Exposure: No service: No Current occupational status: employed Gender identity: Female Cognitive needs: No Hearing needs: No Vision needs: No Female Reproductive History Menstrual Age of Menarche: 18 Date of last menstrual period: 08/17/23 control method: none Date of last pap smear: 06/13/23 (negative) Physical Exam Vital Signs: Last Vital Signs BP 140/82 H 09/08/23 11:37 BMI result Body Mass Index 52.5 Other: Moist healthy mucosa noted though exam limited by adipose difficult to visualize entire cervix completely External Female Exam: normal external appearance and normal appearance of the urethra Speculum Exam - Vagina: normal appearance of the vagina and normal vaginal discharge Speculum Exam - Cervix: normal appearance of the cervix and Cervical os closed Results Reviewed Results Reviewed: [facility] [place] [address] Ultrasound Report Signed Patient: Alicia Davenport MR#: [id number] : 1995 Acct:[id number] Age/Sex: 27 / F ADM Date: 06/16/23 Loc: HO.HMGCX Attending Dr: Maris Liu CNM Ordering Physician: Maris Liu CNM Date of Service: 06/16/23 Procedure(s): US pelvic and transvaginal Accession Number(s): [id number] cc: Maris Liu CNM~ EXAMINATION: US PELVIS CLINICAL INFORMATION: Amenorrhea COMPARISON: None available. TECHNIQUE: Ultrasound of the pelvis is performed using both transabdominal and transvaginal transducers along with Doppler. Transvaginal imaging is performed due to inadequate visualization transabdominally. FINDINGS: Uterus: The uterus is anteverted and measures 7.3 x 3.4 x 4.4 cm. Small nabothian cysts are seen. The double wall endometrial thickness is 11 mm. The uterus is smooth in contour and has normal myometrial echogenicity. No visible fibroid. Adnexa: Both ovaries are visualized. There is normal color flow to the adnexa. There is no ovarian torsion. There is no pelvic ascites or fluid collection. Right ovary measures 4.1 x 1.9 x 2.2 cm. Volume 9.3 mL. Left ovary measures 3.9 x 2.2 x 2.7 cm. Volume 12.2 mL. Multiple incidental follicles are seen in the left ovary. US/US pelvic and transvaginal IMPRESSION: Normal uterus and ovarian size. Multiple follicles are present in the left ovary which can be seen in polycystic ovarian syndrome although there is no associated ovarian enlargement in this patient. Dictated By: Ayan Guerrero MD Signed By: <Electronically signed by Ayan Guerrero MD in OV> 06/18/23 1557 DD/ 52 TD/TT: Configuration Management Architect: DM Assessment & Plan Assessment & Plan (1) Cervical cancer screening: Comment: 06/12/2023 Pap is negative. Code(s): Z12.4 - Encounter for screening for malignant neoplasm of cervix (2) PCOS (polycystic ovarian syndrome): Comment: obesity/ amenhorea/ and now multiple ovarian follicles L ovary. rev at f/u visit Code(s): E28.2 - Polycystic ovarian syndrome (3) Obesity, morbid, BMI 50 or higher: Code(s): E66.01 - Morbid (severe) obesity due to excess calories (4) Potential exposure to STD: Code(s): Z20.2 - Contact with and (suspected) exposure to infections with a predominantly sexual mode of transmission (5) Vaginal odor: Code(s): N89.8 - Other specified noninflammatory disorders of vagina (6) BCP ( control pills) initiation: Code(s): Z30.011 - Encounter for initial prescription of contraceptive pills (7) Amenorrhea: Code(s): N91.2 - Amenorrhea, unspecified Plan Is here today for ultrasound follow-up and also follow-up on the menorrhea and discussion of PCOS but also she thinks she might have BV she has an odorous discharge that bothers her and she feels like she has shower all the time and she also has some itching. She is currently using condoms for about the last month. She took the Provera a couple of times and she does have a couple more refills. She last used it to bring on a period in July and she did get a period after it but in August she got a period on her own and they both felt like normal periods that lasted about 5-6 days 1st day with spotting dates to and 3 very heavy and crampy and then lead die molder after that. She has started the weight management program and is working very hard on it she either does the treadmill at the gym or sometimes if she can not get to the to him she does 1/2 hour video before work in the morning and her favorite are these very active dance videos and she works up more of a sweat with that than the treadmill. 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 Speculum exam was challenging secondary adipose vagina looked pink and moist no abnormal discharge appreciated at exam. Discussed that the ultrasound is in keeping with the previous notes about polycystic ovarian syndrome and her hirsute is Um and obesity and amenorrhea. Discussed that the Provera is helpful to bring on a. When she has times when she does not get 1 however it does not provide any control because of her migraines with auras she would not be a candidate for combination OCPs and their analogs. She is not interested in IUDs and they also would be very difficult to place secondary to adipose. And Nexplanon and Depo-Provera come with their attendant weight gain issues and would not be a good idea for her either. I applauded her use of condoms and recommend she continue with those but if she wants a little something extra that might help prevent the lining of the uterus from building up, it might be helpful for her to start on the norethindrone only control pills. I recommend if she wants to start them that she should start them perhaps on day 3 of her period, whether natural or post provera, so she does begin to have a good withdrawal bleed and then start the pills. We will see her in 3 months to see how she is doing and I wish her every continued success in her weight loss ventures, Orders: Orders Bacterial Vaginosis Panel Today B96.89 - Other specified bacterial agents as the cause of diseases classified elsewhere, N76.0 - Acute vaginitis CT NG by PCR Today Z20.2 - Contact with and (suspected) exposure to infections with a predominantly sexual mode of transmission Medications: New norethindrone (contraceptive) Start on day 3 of menses, and 1 pill every day until switching to another method... 0.35 mg PO DAILY 84 tabs 3RF Coding Level of Care Code Est Pt Level 3 (03358) Diagnoses Cervical cancer screening Z12.4 PCOS (polycystic ovarian syndrome) E28.2 Obesity, morbid, BMI 50 or higher E66.01 Potential exposure to STD Z20.2 Vaginal odor N89.8 BCP ( control pills) initiation Z30.011 Amenorrhea N91.2
== END 2023-09-08 12:28 | disposition home or self-care (01) ==
PROVIDERS: PCP Internal Medicine; Visit Provider Advanced Practice Midwife
DX: Z12.4 Encounter for screening for malignant neoplasm of cervix (principal); E28.2 Polycystic ovarian syndrome; E66.01 Morbid (severe) obesity due to excess calories; Z20.2 Contact with and (suspected) exposure to infections with a predominantly sexual mode of transmission; N89.8 Other specified noninflammatory disorders of vagina; Z30.011 Encounter for initial prescription of contraceptive pills; N91.2 Amenorrhea, unspecified
CPT/HCPCS: 99213

== ENCOUNTER 2024-01-14 12:30 | Emergency (ER) | payer OTHER, SELFPAY ==
--- NOTE | ~2024-01-14 | US_ITS ---
EXAMINATION: US PELVIS CLINICAL INFORMATION: Right pelvic pain COMPARISON: Report of previous 06/16/23 TECHNIQUE: Ultrasound of the pelvis is performed using both transabdominal and transvaginal transducers along with Doppler. Transvaginal imaging is performed due to inadequate visualization transabdominally. FINDINGS: Uterus: The uterus is anteverted and measures 7.5 x 3.5 x 4.6 cm. The estimated cervical length is 2.9 cm. The double wall endometrial thickness is 7 mm. No suspicious abnormality in the cervix. There may be a tiny nabothian cysts. The uterus is smooth in contour and has normal myometrial echogenicity. Round hypoechoic 1.2 cm area of altered echotexture in the right side of the lower uterine segment. Statistically this represents a fibroid. Adnexa: The right ovary was only visualized chest cutaneously above the uterus. No large pelvic mass or collection. There is no pelvic ascites or fluid collection. Minimal amount of nonspecific free pelvic fluid. What appears to represent the right ovary measures 3.3 x 2.8 x 1.6 cm. The estimated right ovarian finding is approximately 8 mL. Left ovary measures 2.9 x 1.9 x 2.0 cm. The estimated left ovarian volume is approximately 6 mL. There is color signal present within the left ovary. US/US pelvic and transvaginal IMPRESSION: There may be a small right-sided uterine fibroid. The endometrium appears within normal limits. No suspicious adnexal mass or collection. The right ovary was only demonstrated superiorly on the transcutaneous imaging. No suspicious right adnexal mass or collection demonstrated
[2024-01-14 12:50] VITALS: BP 197/101; PULSE 68; RESP 16; TEMP 37.2; O2SAT 97; BMI 48.9
--- NOTE | 2024-01-14 12:53 | ED.GENADULT ---
HPI - General Adult General Chief complaint: Vaginal Bleeding Stated complaint: Vaginal bleeding Time Seen by Provider: 01/14/24 18:24 Source: patient, RN notes reviewed and old records reviewed Mode of arrival: ambulatory Limitations: no limitations History of Present Illness HPI narrative: 28-year-old female presents for evaluation vaginal bleeding. Patient reports a history ovarian cysts. She states due to this she was prescribed control 2 months ago which she been taking as prescribed She reports her menstrual cycle was about 3 weeks ago but was short for her. She now complains of vaginal bleeding for the last 5 days She reports right-sided pelvic cramping No other complaints or concerns at this time Related Data Previous Rx's Medication Instructions Recorded medroxyprogesterone 10 mg tablet 10 mg PO DAILY #10 tabs 06/12/23 (Provera) norethindrone (contraceptive) 0.35 0.35 mg PO DAILY #84 tabs 09/08/23 mg tablet Allergies Allergy/AdvReac Type Severity Reaction Status Date / Time coconut [COCONUT] Allergy Unknown HIVES Verified 09/08/23 11:38 shellfish derived Allergy Unknown UNKNOWN Verified 09/08/23 11:38 [SHELLFISH DERIVED] Review of Systems Constitutional: Constitutional: Denies body ache(s), Denies chills and Denies fever(s) Eyes: Eyes: Denies blurry vision Cardiovascular: Cardiovascular: Denies chest pain and Denies dyspnea Respiratory: Respiratory: Denies cough and Denies dyspnea Gastrointestinal: Gastrointestinal: Reports abdominal pain, Reports nausea and Denies vomiting Genitourinary: Genitourinary: Reports pelvic pain and Reports vaginal discharge (bloody only) Musculoskeletal: Musculoskeletal: Denies back pain PMFSH Past Medical History Medical History Obesity Obesity Surgical History History of back surgery Family History Family History Father No problems noted. Mother No problems noted. Social History Social History Housing: Apartment Alcohol intake: current Alcohol intake frequency: holidays/special occasions only Patient Tobacco Use Status: Never used Tobacco Smoked in Last 30 Days: No e-Cigarette/Vaping Use: Never Used Second Hand Smoke Exposure: No Use of substances other than those prescribed or required for medical reasons: No Advance Directives: No Advance Directives Information Provided: No service: No Current occupational status: employed Gender identity: Female Cognitive needs: No Hearing needs: No Vision needs: No Physical Exam ED Vital Signs: Vital Signs - 24 hr 01/14/24 12:50 01/14/24 18:41 Temperature 98.9 F 98.8 F Pulse Rate 68 67 Respiratory Rate 16 20 Blood Pressure 197/101 H 163/86 H Pulse Oximetry 97 98 Oxygen Delivery Method Room Air Room Air BMI result Body Mass Index 48.9 Const General: healthy appearing, comfortable, no acute distress, alert and awake Nutritional Appearance: well nourished Orientation/consciousness: patient oriented x3 HENMT Head: Yes normocephalic and Yes atraumatic Eyes Eyelids: Yes eyelids normal Conjunctivae: conjunctivae normal Sclerae: sclerae normal Corneas: corneas normal Pupils: Equal, round and reactive pupils present EOM: EOMs intact bilaterally Neck Neck: Yes full ROM Resp Effort & Inspection: normal respiratory effort, able to speak in complete sentences and not labored GI Inspection: No distended Palpation (GI): Soft to palpation, not firm, Tenderness to palpation present (GI) in the RLQ and suprapubicly, no guarding and not rigid Auscultation: normoactive bowel sounds Skin General skin exam: elasticity normal Neuro General: patient oriented x3 Cranial nerves: Yes Equal, round and reactive pupils present and Yes Bilaterally intact EOM present Cognition (Neuro): normal cognition Extrem Other: Moving all extremities well without any obvious deformities Course Course Course Narrative: RME- 28 year old female presents for evaluation of vaginal bleeding and pelvic pain. Symptoms started 5 days ago. She reports being compliant with her control that she started 2 months ago. Plan for labs, HCG, and a UA Reevaluation(s) Reevaluation #1: Patient has no signs of anemia, H&H within normal limits. Plan for ultrasound to evaluate for ovarian cyst and ovarian torsion. Her pelvic bleeding is most likely related to recent contraception change which was discussed with her. Time: 19:06 Medications Administered Discontinued Medications Generic Name Dose Route Start Last Admin Trade Name Freq PRN Reason Stop Dose Admin Ketorolac Tromethamine 30 mg 01/14/24 18:29 01/14/24 19:08 Ketorolac Tromethamine 30 Mg/Ml Vial IM 01/14/24 18:30 30 mg ONCE ONE Administration Medical Decision Making Medical Decision Making [facility] Narrative: 28-year-old female presents for evaluation of vaginal bleeding. Plan for labs, including hCG, UA. Differential Diagnosis Differential Diagnoses: The differential diagnosis associated with the presentation includes Dysmenorrhea Menorrhagia Metromenorrhagia Anemia Ovarian cyst Lab Data [facility] Lab Attestation statement: I reviewed the patient's lab results. No leukocytosis, no anemia, platelet count 416. No electrolyte abnormalities 01/14/24 13:11 01/14/24 13:11 Labs: Lab Results 01/14/24 01/14/24 Range/Units 13:11 18:59 WBC 10.2 (4.8-10.8) X10*3/uL RBC 5.29 (4.20-5.50) X10*6/uL Hgb 14.2 (12.0-16.0) g/dl Hct 43.4 (37.0-47.0) % MCV 82.0 (80.0-98.0) fL MCH 26.8 L (27.0-33.0) pg MCHC 32.7 (31.0-35.0) g/dl RDW 13.3 (11.0-16.0) % Plt Count 416 H (160-400) X10*3/uL MPV 8.6 L (9.4-12.3) fL Immature Gran % (Auto) 0.4 (0.0-0.4) % Neut % (Auto) 66.3 (45-73) % Lymph % (Auto) 22.4 (20-40) % [place] % (Auto) 8.6 (2-11) % Eos % (Auto) 2.0 (0-4) % Baso % (Auto) 0.3 (0-2) % Lymph # (Auto) 2.3 (1.2-4.9) X10*3/uL [place] # (Auto) 0.9 (0.1-1.2) X10*3/uL Eos # (Auto) 0.2 (0.0-0.4) X10*3/uL Baso # (Auto) 0.0 (0.0-0.2) X10*3/uL Abs Immat Gran (auto) 0.04 H (0.00-0.03) X10*3/uL Absolute Neuts (auto) 6.8 (2.0-8.3) x10*3/uL Absolute Nucleated RBC 0.000 (0.0-0.012) X10*3/uL Nucleated RBC % (auto) 0.0 (0.0-0.2) /100WBC Sodium 141 (135-145) mmol/L Potassium 4.2 (3.3-5.1) mmol/L Chloride 106 (96-108) mmol/L Carbon Dioxide 26 (22-29) mmol/L Anion Gap 13 (12-20) BUN 9 (9-16) mg/dL Creatinine 0.64 (0.5-1.4) mg/dL Estim Creat Clear Calc 176.1 Estimated GFR > 60 Random Glucose 98 (60-115) mg/dL Calcium 9.6 D (8.4-10.2) mg/dL Beta HCG, Quant < 2 mIU/mL Urine Color Red A Urine Appearance Turbid Urine pH 6.5 (5.0-9.0) Ur Specific [place] 1.015 (1.005-1.025) Urine Protein 30 (1+) H (Neg-Trace) mg/dL Urine Glucose (UA) Negative (Negative) mg/dL Urine Ketones 15 (Negative) mg/dL Urine Blood Large (3+) H (Negative) Urine Nitrite Negative (Negative) Ur Leukocyte Esterase Moderate (2+) H (Negative) Urine RBC >20 H (0-2) /HPF Urine WBC 21-50 H (0-5) /HPF Ur Squamous Epith Cells 3-5 (0-2) /HPF Urine Bacteria Trace (None Seen) Hyaline Casts 0-2 (0-2) /LPF Discharge Plan Discharge Clinical Impression: Menometrorrhagia Patient Disposition: Home, Self-Care Instructions: Menorrhagia (ED) Additional Instructions: Your irregular bleeding is likely related to the recent control that was started. Your ultrasound shows a uterine fibroid on the right which may be contributing to your pain Follow-up with your OBGYN Your blood work was reassuring to Prescriptions: No Action medroxyprogesterone [Provera] 10 mg tablet 10 mg PO DAILY Qty: 10 3RF Rx Instructions: Take for 10 days they 1 through 10 of the month, if absolutely no unprotected intercourse for 2 weeks prior, and negative test norethindrone (contraceptive) 0.35 mg tablet 0.35 mg PO DAILY Qty: 84 3RF Rx Instructions: Start on day 3 of menses, and 1 pill every day until switching to another method...
[2024-01-14 13:16] LABS: MANUAL DIFF FLAG NO
[2024-01-14 13:17] LABS: Basophils Percent Auto 0.3 % (0-2); Eosinophils Absolute Auto 0.2 X10*3/uL (0.0-0.4); Hematocrit 43.4 % (37.0-47.0); Hemoglobin 14.2 g/dl (12.0-16.0); Imm Gran Abs Auto 0.04 X10*3/uL (0.00-0.03); Imm Gran Pct Auto 0.4 % (0.0-0.4); Lymphocytes Absolute Auto 2.3 X10*3/uL (1.2-4.9); Lymphocytes Percent Auto 22.4 % (20-40); Mean Corpuscular HGB Conc 32.7 g/dl (31.0-35.0); Mean Corpuscular Hemoglobin 26.8 pg (27.0-33.0); Mean Platelet Volume 8.6 fL (9.4-12.3); Monocytes Absolute Auto 0.9 X10*3/uL (0.1-1.2); Monocytes Percent Auto 8.6 % (2-11); Neutrophils Absolute Auto 6.8 x10*3/uL (2.0-8.3); Neutrophils Percent Auto 66.3 % (45-73); Platelet Count 416 X10*3/uL (160-400); Red Blood Count 5.29 X10*6/uL (4.20-5.50); Red Cell Distribution Width 13.3 % (11.0-16.0); White Blood Count 10.2 X10*3/uL (4.8-10.8)
[2024-01-14 13:37] LABS: Anion Gap 13 (12-20); Blood Urea Nitrogen 9 mg/dL (9-16); Calcium 9.6 mg/dL (8.4-10.2); Carbon Dioxide 26 mmol/L (22-29); Chloride 106 mmol/L (96-108); Creatinine Clr Calc Pharmacy 176.1; Estimated Glomerular Filt Rate > 60; Glucose Random 98 mg/dL (60-115); Potassium 4.2 mmol/L (3.3-5.1); Sodium 141 mmol/L (135-145)
[2024-01-14 13:41] LABS: HCG Quantitative < 2 mIU/mL
[2024-01-14 18:41] VITALS: BP 163/86; PULSE 67; RESP 20; TEMP 37.1; O2SAT 98
[2024-01-14 19:07] LABS: Appearance Urine Turbid; Color Urine Red; Glucose Urine UA Negative (Negative); Leukocyte Esterase Urine Moderate (2+) (Negative); Nitrite Urine Negative (Negative); PH 6.5 (5.0-9.0); Specific Gravity - Urine 1.015 (1.005-1.025); UMIC TRIGGER UACC YES; Urine Blood Large (3+) (Negative); Urine Ketones 15 mg/dL (Negative); Urine Protein 30 (1+) mg/dL (Neg-Trace)
[2024-01-14] MEDS: Ketorolac Tromethamine 30 MG/ML VIAL IM (19:08)
[2024-01-14 19:11] LABS: Bacteria Urine Trace (None Seen); Hyaline Casts Urine 0-2 /LPF (0-2); RBC Urine >20 /HPF (0-2); UACC Culture Trigger YES; WBC Urine 21-50 /HPF (0-5)
== END 2024-01-14 19:57 | disposition home or self-care (01) ==
PROVIDERS: Physician Assistant; Emergency Provider Internal Medicine; PCP Internal Medicine
DX: N92.1 Excessive and frequent menstruation with irregular cycle (principal); R10.2 Pelvic and perineal pain; Z79.899 Other long term (current) drug therapy
CPT/HCPCS: 36415; 76830; 76856; 80048; 81001; 84702; 85025; 87086; 96372; 99284; J1885